=== PATIENT | female | born 1970 | race African-American/Black ===

== ENCOUNTER 2016-12-15 10:40 | Emergency (ER) | payer OTHER ==
[2016-12-15 10:47] VITALS: BP 121/86; PULSE 87; TEMP 98.5; BMI 26.4
--- NOTE | 2016-12-15 11:10 | PDOC ---
History of Present Illness - General Chief Complaint: Respiratory Stated Complaint: COUGH Time Seen by Provider: 12/15/16 10:47 History Source: Patient Exam Limitations: No Limitations - History of Present Illness Initial Comments: 12/15/16 11:11 46-year-old female with no medical history presents to the emergency department for productive cough for 2 weeks. Patient reports some mild sore throat and some mild tension-like headaches for the last 4 days. Denies fevers, chills. She had tried [id number] medications such as TheraFlu, Tylenol with little to moderate effect. Because he wasn't getting better, patient came to the emergency room for further evaluation. Reports back pain with coughing. Past History - Past Medical History Allergies/Adverse Reactions: Allergies Allergy/AdvReac Type Severity Reaction Status Date / Time No Known Drug Allergies Allergy Unknown Verified 12/15/16 10:43 mushrooms Allergy Intermediate Itching Uncoded 12/15/16 10:43 Home Medications: Ambulatory Orders Azithromycin 250 mg PO DAILY #6 tablet 12/15/16 D-Methorphan/PE/Acetaminophen [Theraflu Cold and Cough Powder] 1 each PO ASDIR 12/15/16 Guaifenesin [Robitussin] mg PO ASDIR 12/15/16 Asthma: No Cancer: No Cardiac Disorders: No Diabetes: No HTN: Yes (DURING TWIN , NOT NOW) Seizures: No Thyroid Disease: No - Psycho/Social/Smoking Cessation Hx Anxiety: No Suicidal Ideation: No Smoking History: Never smoked Hx Alcohol Use: No Drug/Substance Use Hx: No Hx Substance Use Treatment: No Review of Systems - Review of Systems Able to Perform ROS?: Yes Comments:: 12/15/16 11:12 GENERAL/CONSTITUTIONAL: No fever, weakness. HEAD, EYES, EARS, NOSE AND THROAT: No change in vision. No ear pain or discharge. + sore throat. CARDIOVASCULAR: No chest pain or shortness of breath. RESPIRATORY: +productive cough. back pain with coughing. No wheezing, or hemoptysis. GASTROINTESTINAL: No abdominal pain, nausea, vomiting, diarrhea, or decreased PO intolerance. GENITOURINARY: No dysuria, frequency, or change in urination. MUSCULOSKELETAL: No joint or muscle swelling or pain. No neck or back pain. SKIN: No rash NEUROLOGIC: No headache, vertigo, loss of consciousness, or change in strength/ sensation. ENDOCRINE: No increased thirst. No abnormal weight change. HEMATOLOGIC/LYMPHATIC: No anemia, easy bleeding, or history of blood clots. ALLERGIC/IMMUNOLOGIC: No hives or skin allergy. *Physical Exam - Vital Signs Last Vital Signs Temp Pulse Resp BP Pulse Ox 98.5 F 87 18 121/86 100 12/15/16 10:40 12/15/16 10:40 12/15/16 10:40 12/15/16 10:40 12/15/16 10:40 - Physical Exam Comments: 12/15/16 11:13 GENERAL: Awake, alert, and fully oriented, in no acute distress. HEAD: No signs of trauma EYES: PERRLA, EOMI, sclera anicteric, conjunctiva clear ENT: Auricles normal inspection, hearing grossly normal, nares patent. mildly erythematous oropharynx clear without exudates. NECK: Normal ROM, supple, no lymphadenopathy, JVD, or masses LUNGS: Breath sounds equal, clear to auscultation bilaterally. No wheezes, and no crackles HEART: Regular rate and rhythm, normal S1 and S2, no murmurs, rubs or gallops ABDOMEN: Soft, nontender, normoactive bowel sounds. No guarding, no rebound. No masses EXTREMITIES: Normal range of motion, no edema. No clubbing or cyanosis. No cords, erythema, or tenderness NEUROLOGICAL: Cranial nerves II through XII grossly intact. Normal speech, normal gait SKIN: Warm, Dry, normal turgor, no rashes or lesions noted. Medical Decision Making - Medical Decision Making 12/15/16 11:13 Vital Signs Temp Pulse Resp BP Pulse Ox 98.5 F 87 18 121/86 100 12/15/16 10:40 12/15/16 10:40 12/15/16 10:40 12/15/16 10:40 12/15/16 10:40 Overall well-appearing female. I suspect that the patient has bronchitis. Given the length of the symptoms, we'll initiate azithromycin. Supportive care and follow with primary care physician. Return precautions given. I discussed the physical exam findings, ancillary test results and final diagnoses with the patient. I answered all of the patient's questions. The patient was satisfied with the care received and felt comfortable with the discharge plan and treatment plan. The patient will call their primary care physician within 24 hours to arrange follow-up and will return to the Emergency Department with any new, persistant or worsening symptoms. *DC/Admit/Observation/Transfer Diagnosis at time of Disposition: Bronchitis - Discharge Dispostion Disposition: HOME Condition at time of disposition: Stable Admit: No - Prescriptions Prescriptions: Azithromycin 250 mg PO DAILY #6 tablet - Referrals Referrals: Anne-Marie Nolan MD [Primary Care Provider] - - Patient Instructions Printed Discharge Instructions: DI for Acute Bronchitis Additional Instructions: Take the azithromycin as prescribed. Complete its course. Follow up with your primary care physician. Take 650 mg tylenol every 4 hours as needed for pain/fever.
== END 2016-12-15 11:20 | disposition home or self-care (01) ==
LOC: FER 10:40
DX: J40 Bronchitis, not specified as acute or chronic (principal)
CPT/HCPCS: 99283-25

== ENCOUNTER 2017-12-30 14:49 | Emergency (ER) | payer OTHER ==
[2017-12-30 15:03] VITALS: BP 127/78; PULSE 85; TEMP 99.2; BMI 26.6
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
[2017-12-30] MEDS ORDERED: CYCLOBENZAPRINE HCL 10 MG TABLET (FP) PO ONE (17:08)
[2017-12-30] MEDS ORDERED: IBUPROFEN 400 MG TABLET (FP) PO ONE ×2 (17:08→17:10)
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
== END 2017-12-30 17:16 | disposition home or self-care (01) ==
LOC: JERFT 14:49
DX: S13.4XXA Sprain of ligaments of cervical spine, initial encounter (principal); V43.62XA Car passenger injured in collision with other type car in traffic accident, initial encounter; Y92.414 Local residential or business street as the place of occurrence of the external cause; Y93.89 Activity, other specified; Y99.8 Other external cause status
CPT/HCPCS: 84703; 99281-25

== ENCOUNTER 2020-11-25 13:10 | Emergency (ER) | payer BC | END 2020-11-25 14:33 | disposition home or self-care (01) | LOC: JVIRT 13:10 | DX: Z11.59 Encounter for screening for other viral diseases (principal) | CPT/HCPCS: C9803; G2251-GT; Q3014-GT; U0003 ==

== ENCOUNTER 2022-06-14 21:41 | Emergency (ER) | payer BC ==
[2022-06-14 21:58] VITALS: BP 136/88; PULSE 81; RESP 16; TEMP 98.9; BMI 25.7
[2022-06-14] MEDS ORDERED: ACYCLOVIR 400 MG TABLET PO ONE (22:10)
[2022-06-14] MEDS ORDERED: ACYCLOVIR 400 MG TABLET ONE (22:15)
== END 2022-06-14 22:18 | disposition home or self-care (01) ==
LOC: FER 21:41
DX: B02.9 Zoster without complications (principal)
CPT/HCPCS: 99283-25

== ENCOUNTER 2022-09-09 04:51 | Day surgery (SDC) | payer BC ==
[2022-09-08 16:36] VITALS: BMI 24.8
[2022-09-09 13:15] VITALS: TEMP 98
[2022-09-09 13:34] VITALS: RESP 14
[2022-09-09 14:11] VITALS: BP 143/84; PULSE 74
== END 2022-09-09 14:31 | disposition home or self-care (01) ==
LOC: JASU-ENDO 04:51
PROVIDERS: ATTEND Internal Medicine Gastroenterology
PROC: 0DBH8ZX Excision of Cecum, Via Natural or Artificial Opening Endoscopic, Diagnostic (ICD-10-PCS; principal; 2022-09-09 10:30)
DX: Z12.11 Encounter for screening for malignant neoplasm of colon (principal); D12.0 Benign neoplasm of cecum; K63.89 Other specified diseases of intestine
CPT/HCPCS: 81025; 88305-TC

== ENCOUNTER 2022-11-01 09:29 | Emergency (ER) | payer BC ==
[2022-11-01] MEDS ORDERED: ACETAMINOPHEN 325 MG TABLET (FP) PO ONE (09:30)
[2022-11-01 09:38] VITALS: BP 146/99; PULSE 100; RESP 18; TEMP 99.3; BMI 28.2
[2022-11-01] MEDS ORDERED: ACETAMINOPHEN 325 MG TABLET (FP) ONE (09:38)
== END 2022-11-01 09:53 | disposition home or self-care (01) ==
LOC: FER 09:29
DX: J09.X2 Influenza due to identified novel influenza A virus with other respiratory manifestations (principal); R05.1 Acute cough
CPT/HCPCS: 0241U-QW; 99283-25

== ENCOUNTER 2023-05-07 05:56 | Emergency (ER) | payer BC ==
[2023-05-07 06:08] VITALS: TEMP 98; BMI 28.4
[2023-05-07] MEDS ORDERED: ONDANSETRON 4 MG/2 ML VIAL IVPB ONE (06:09)
[2023-05-07] MEDS ORDERED: FAMOTIDINE 20 MG/50 ML IVPB 20 MG/50 ML MG IVPB ONE ×2 (06:09→06:19)
[2023-05-07] MEDS ORDERED: ACETAMINOPHEN 500 MG TABLET (FP) PO ONE (06:16)
[2023-05-07] MEDS ORDERED: MAG HYDROX/AL HYDROX/SIMETH 30 ML UNIT-DOSE CUP PO ONE (06:16)
[2023-05-07] MEDS ORDERED: ONDANSETRON 4 MG/2 ML VIAL ONE (06:18)
[2023-05-07] MEDS ORDERED: ACETAMINOPHEN 325 MG TABLET (FP) ONE (06:21)
[2023-05-07] MEDS ORDERED: MAG HYDROX/AL HYDROX/SIMETH 30 ML UNIT-DOSE CUP ONE (06:22)
[2023-05-07 07:11] LABS: BASO % 1.1 % (0-2.0); EOS % 1.7 % (0-4.5); HEMOGLOBIN 13.5 GM/dL (10.7-15.3); LYMPH % 36.7 % (8-40); MCH 28.4 pg (25.7-33.7); MEAN PLT VOLUME 8.7 fl (7.5-11.1); MONO % 10.3 % (3.8-10.2); NEUT % 50.2 % (42.8-82.8); PLATELET COUNT 172 10^3/uL (134-434); RBC 4.77 M/mm3 (3.60-5.2); RDW 13.8 % (11.6-15.6); WHITE BLOOD COUNT 5.3 K/mm3 (4.0-10.0)
[2023-05-07 07:15] LABS: URINE APPEARANCE CLEAR; URINE BILIRUBIN NEGATIVE (NEGATIVE); URINE COLOR YELLOW; URINE GLUCOSE (UA) NEGATIVE (NEGATIVE); URINE KETONE NEGATIVE (NEGATIVE); URINE LEUK ESTERASE NEGATIVE (NEGATIVE); URINE NITRITE NEGATIVE (NEGATIVE); URINE PROTEIN NEGATIVE (NEGATIVE)
[2023-05-07 07:39] LABS: POTASSIUM 4.1 mmol/L (3.5-5.1)
[2023-05-07 07:41] LABS: ALBUMIN 3.6 g/dl (3.4-5.0); CALCIUM 8.8 mg/dL (8.5-10.1)
[2023-05-07 07:42] LABS: MAGNESIUM 2.2 mg/dL (1.8-2.4)
[2023-05-07 07:44] LABS: CREATININE 0.7 mg/dL (0.55-1.3)
[2023-05-07 07:45] LABS: PHOSPHOROUS 3.2 mg/dL (2.5-4.9)
[2023-05-07 07:46] LABS: BILIRUBIN,TOTAL 0.3 mg/dL (0.2-1); TOT PROT 7.2 g/dl (6.4-8.2)
[2023-05-07 07:56] VITALS: BP 144/97; PULSE 68; RESP 17
== END 2023-05-07 08:12 | disposition home or self-care (01) ==
LOC: JER 05:56
PROC: 3E033GC Introduction of Other Therapeutic Substance into Peripheral Vein, Percutaneous Approach (ICD-10-PCS; principal; 2023-05-07)
PROC: 3E033GC Introduction of Other Therapeutic Substance into Peripheral Vein, Percutaneous Approach (ICD-10-PCS; 2023-05-07)
DX: R10.13 Epigastric pain (principal); R11.0 Nausea
CPT/HCPCS: 36415; 80053; 81003; 83690; 83735; 84100; 84484; 84703; 85025; 87086; 93005; 93010; 99284-25

== ENCOUNTER 2023-11-09 11:26 | Emergency (ER) | payer BC ==
[2023-11-09 11:53] VITALS: BP 136/90; PULSE 94; RESP 18; TEMP 98.9; BMI 28.0
[2023-11-09] MEDS ORDERED: KETOROLAC TROMETHAMINE 30 MG/1 ML VIAL IVPUSH ONE (12:09)
[2023-11-09] MEDS ORDERED: KETOROLAC TROMETHAMINE 30 MG/1 ML VIAL ONE (12:19)
[2023-11-09 12:55] LABS: HEMATOCRIT 37.9 % (32.4-45.2); HEMOGLOBIN 12.8 G/dL (10.7-15.3); MCH 29.5 pg (25.7-33.7); MCHC 33.8 g/dl (32.0-36.0); MEAN CELL VOLUME 87.4 fl (80-96); PLATELET COUNT 152.4 10^3/uL (134-434); RBC 4.34 10^6/uL (3.60-5.2); RDW 13.5 % (11.6-15.6); WHITE BLOOD COUNT 5.4 10^3/uL (4.0-10.8)
[2023-11-09 13:17] LABS: BILIRUBIN,TOTAL 0.4 mg/dl (0.2-1); CALCIUM 9.1 mg/dl (8.5-10.1); CREATININE 0.9 mg/dl (0.6-1.3); POTASSIUM 3.7 mmol/L (3.5-5.1); TOT PROT 6.3 g/dl (6.4-8.2)
[2023-11-09 14:02] LABS: PLATELET ESTIMATE ADEQUATE
== END 2023-11-09 14:27 | disposition home or self-care (01) ==
LOC: FER 11:26
PROC: 3E0333Z Introduction of Anti-inflammatory into Peripheral Vein, Percutaneous Approach (ICD-10-PCS; principal; 2023-11-09)
DX: R07.81 Pleurodynia (principal); M54.6 Pain in thoracic spine; M79.10 Myalgia, unspecified site
CPT/HCPCS: 36415; 71046-TC-FY; 80053; 85027; 85379; 99284-25

== ENCOUNTER 2024-03-30 00:10 | Emergency (ER) | payer BC ==
[2024-03-30 00:18] VITALS: PULSE 88; RESP 16; TEMP 97.9; BMI 28.0
[2024-03-30 00:52] VITALS: BP 139/90
== END 2024-03-30 00:57 | disposition home or self-care (01) ==
LOC: FER 00:10
DX: I10 Essential (primary) hypertension (principal); F06.4 Anxiety disorder due to known physiological condition; R20.2 Paresthesia of skin
CPT/HCPCS: 99282-25

== ENCOUNTER 2025-01-06 19:31 | Emergency (ER) | payer BC ==
[2025-01-06 20:03] VITALS: BP 120/76; PULSE 83; RESP 16; TEMP 98.4; BMI 28.0
[2025-01-06] MEDS ORDERED: ALBUTEROL SO4 2.5/IPRATROPIUM 0.5 INH SOL 3 ML VIAL.NEB. NEB ONE (20:13)
[2025-01-06] MEDS: ALBUTEROL SO4 2.5/IPRATROPIUM 0.5 INH SOL 3 ML VIAL.NEB. NEB ONE (20:23)
== END 2025-01-06 21:30 | disposition home or self-care (01) ==
LOC: FER 19:31
PROC: 3E0F7GC Introduction of Other Therapeutic Substance into Respiratory Tract, Via Natural or Artificial Opening (ICD-10-PCS; principal; 2025-01-06)
DX: J40 Bronchitis, not specified as acute or chronic (principal); R05.9 Cough, unspecified; Z20.822 Contact with and (suspected) exposure to COVID-19
CPT/HCPCS: 0241U-QW; 71046-TC-FY; 99284-25

== ENCOUNTER 2025-04-06 19:12 | Emergency (ER) | payer BC ==
[2025-04-06 19:29] VITALS: PULSE 78; RESP 16; TEMP 98.1; BMI 28.4
[2025-04-06] MEDS: ENALAPRIL MALEATE 5 MG TABLET PO ONE (20:11)
[2025-04-06 20:19] LABS: BASOPHILS # 0.04 x10^3/uL (0.01-0.08); EOSINOPHIL % 2.3 % (0.7-5.8); EOSINOPHILS # 0.12 x10^3/uL (0.04-0.36); HEMATOCRIT 44.7 % (34.1-44.9); HEMOGLOBIN 14.8 g/dL (11.2-15.7); MCHC 33.1 g/dl (32.2-35.5); MEAN CELL VOLUME 86.5 fl (79.4-94.8); MEAN PLT VOLUME 10.3 fl (9.4-12.3); MONOCYTE # 0.43 x10^3/uL (0.24-0.86); MONOCYTE % 8.3 % (4.7-12.5); PLATELET COUNT 207 x10^3/uL (182-369); RDW 12.8 % (12.3-16.6)
[2025-04-06 20:37] LABS: ALBUMIN 4.5 g/dl (3.4-5.0); ALK PHOS 116 U/L (45-117); ANION GAP 8 mmol/L (4-13); BILIRUBIN,TOTAL 0.6 mg/dl (0.2-1); CALCIUM 9.6 mg/dl (8.5-10.1); CHLORIDE 101 mmol/L (98-107); CO2 30 mmol/L (21-32); CREATININE 0.7 mg/dl (0.6-1.3); GLUCOSE,RANDOM 96 mg/dl (74-106); MAGNESIUM 2.2 mg/dL (1.8-2.4); PHOSPHOROUS 4.5 (2.5-4.9); POTASSIUM 3.8 mmol/L (3.5-5.1); SGOT/AST 38 U/L (15-37); SGPT/ALT 45 U/L (7-52); SODIUM 139 mmol/L (136-145); TOT PROT 7.4 g/dl (6.4-8.2)
[2025-04-06 20:57] VITALS: BP 126/79
[2025-04-06 22:32] LABS: HIV INTERPRETATION NEGATIVE (NEGATIVE)
[2025-04-06 22:33] LABS: HCV DIAGNOSTIC IN-HOUSE W/RFLX NON-REACTIVE (NONREACTIVE)
== END 2025-04-06 21:05 | disposition home or self-care (01) ==
LOC: FER 19:12
DX: I10 Essential (primary) hypertension (principal); R25.3 Fasciculation
CPT/HCPCS: 36415; 80053; 83735; 84100; 84443; 85025; 86803; 87389; 93005; 99284-25